=== PATIENT | female | born 1990 | race Caucasian/White ===

== ENCOUNTER 2017-12-14 12:14 | Emergency (ER) | payer MEDICAID ==
[2017-12-14 12:23] VITALS: BP 107/67
--- NOTE | 2017-12-14 12:25 | EDM.PDOC ---
ED HPI GENERAL MEDICAL PROBLEM - General Chief Complaint: ENT Problem Stated Complaint: cold [id number] Time Seen by Provider: 12/14/17 12:25 Source of Information: Reports: Patient, RN, RN Notes Reviewed History Limitations: Reports: No Limitations - History of Present Illness INITIAL COMMENTS - FREE TEXT/NARRATIVE: Pt to ER with c/o generalized body aches and sore throat. She states she is in the middle of a 36 hour stretch at work and feels terrible. She denies fever but admits to chills, admits to nausea, but denies vomiting or diarrhea. Denies headache, cough, sinus congestion or runny nose. She states she has had Strep throat many times and feels this is what it is. Onset: Today, Sudden Duration: Getting Worse Location: Reports: Generalized Quality: Reports: Ache Severity: Moderate Improves with: Reports: None Worsens with: Reports: None Associated Symptoms: Reports: Fever/Chills, Nausea/Vomiting - Related Data Allergies Allergy/AdvReac Type Severity Reaction Status Date / Time Penicillins Allergy Hives Verified 07/17/14 13:08 Home Meds: Home Meds . [No Known Home Meds] 07/28/13 [History] Past Medical History - Past Health History Medical/Surgical History: Denies Medical/Surgical History Social & Family History - Living Situation & Occupation Living situation: Reports: with Significant Other Occupation: Unemployed ED ROS GENERAL - Review of Systems Review Of Systems: ROS reveals no pertinent complaints other than HPI. ED EXAM, GENERAL - Physical Exam Exam: See Below Exam Limited By: No Limitations General Appearance: Alert, WD/WN, No Apparent Distress Eye Exam: Bilateral Eye: EOMI, Normal Inspection Ears: Normal External Exam, Hearing Grossly Normal Nose: Normal Inspection Throat/Mouth: Normal Voice, No Airway Compromise, Other (tonsils +2, erythematous.) Head: Atraumatic, Normocephalic Neck: Normal Inspection, Supple, Non-Tender, Full Range of Motion Respiratory/Chest: No Respiratory Distress, Lungs Clear, Normal Breath Sounds, No Accessory Muscle Use, Chest Non-Tender Cardiovascular: Normal Peripheral Pulses, Regular Rate, Rhythm, No Edema, No Gallop, No JVD, No Murmur, No Rub Peripheral Pulses: 2+: Radial (L), Radial (R) GI/Abdominal: Normal Bowel Sounds, Soft, Non-Tender (Female) Exam: Deferred Rectal (Female) Exam: Deferred Back Exam: Normal Inspection, Full Range of Motion Extremities: Normal Inspection, Normal Range of Motion, Non-Tender, No Pedal Edema, Normal Capillary Refill Neurological: Alert, Oriented, CN II-XII Intact, Normal Cognition, Normal Gait, Normal Reflexes, No Motor/Sensory Deficits Psychiatric: Normal Affect, Normal Mood Skin Exam: Warm, Dry, Intact, Normal Color, No Rash Lymphatic: No Adenopathy Course - Vital Signs Last Recorded V/S: Last Vital Signs Temp 98.7 F 12/14/17 12:22 Pulse 108 H 12/14/17 12:22 Resp 14 12/14/17 12:22 BP 107/67 12/14/17 12:22 Pulse Ox 98 12/14/17 12:22 - Orders/Labs/Meds Orders: Active Orders 24 hr Category Date Time Status STREP SCRN A RAPID W CULT CONF [RM] Stat Lab 12/14/17 12:20 Received Labs: Rapid Strep: Negative Departure - Departure Time of Disposition: 12:46 Disposition: Home, Self-Care 01 Condition: Fair Clinical Impression: Tonsillitis - Discharge Information *PRESCRIPTION DRUG MONITORING PROGRAM REVIEWED*: No *COPY OF PRESCRIPTION DRUG MONITORING REPORT IN PATIENT PAULA: No Instructions: Tonsillitis, [id number] Forms: ED Department Discharge Additional Instructions: Follow up with your primary care facility Drink plenty of fluids May use tylenol and/or ibuprofen as directed for pain - My Orders Last 24 Hours: My Active Orders 12/14/17 12:20 STREP SCRN A RAPID W CULT CONF [RM] Stat - Assessment/Plan Last 24 Hours: My Active Orders 12/14/17 12:20 STREP SCRN A RAPID W CULT CONF [RM] Stat
== END 2017-12-14 12:51 | disposition home or self-care (01) ==
LOC: DL.ED 12:14
DX: J03.90 Acute tonsillitis, unspecified (principal); Z88.0 Allergy status to penicillin
CPT/HCPCS: 87081; 87430; 99283

== ENCOUNTER 2018-11-29 15:55 | Emergency (ER) | payer MEDICAID ==
[2018-11-29 16:57] VITALS: BP 115/77; PULSE 114
--- NOTE | 2018-11-29 19:01 | EDM.PDOC ---
ED HPI GENERAL MEDICAL PROBLEM - General Chief Complaint: ENT Problem Stated Complaint: TONSILS SWOLLEN AND BLEEDING Time Seen by Provider: 11/29/18 18:57 Source of Information: Reports: Patient History Limitations: Reports: No Limitations - History of Present Illness INITIAL COMMENTS - FREE TEXT/NARRATIVE: onset Sx last night. states NOT ALLERGIC to penicillin. last episode got IM + PO. Throat Pain Score (Numeric/FACES): 7 - Related Data Allergies Allergy/AdvReac Type Severity Reaction Status Date / Time Penicillins Allergy Hives Verified 11/29/18 16:56 Home Meds: Home Meds . [No Known Home Meds] 07/28/13 [History] Past Medical History - Past Health History Medical/Surgical History: Denies Medical/Surgical History HEENT History: Reports: None Cardiovascular History: Reports: None Respiratory History: Reports: Asthma Other Respiratory History: exercise induced Gastrointestinal History: Reports: None Genitourinary History: Reports: None [employer] INS[employer] History: Reports: None Musculoskeletal History: Reports: None Neurological History: Reports: None Psychiatric History: Reports: None Endocrine/Metabolic History: Reports: None Hematologic History: Reports: None Immunologic History: Reports: None Oncologic (Cancer) History: Reports: None Dermatologic History: Reports: None - Infectious Disease History Infectious Disease History: Reports: Chicken Pox - Past Surgical History Head Surgeries/Procedures: Reports: None Social & Family History - Tobacco Use Years of Tobacco use: 1 Second Hand Smoke Exposure: No - Caffeine Use Caffeine Use: Reports: Coffee, Soda - Recreational Drug Use Recreational Drug Use: No - Living Situation & Occupation Living situation: Reports: with Significant Other Occupation: Unemployed ED ROS ENT - Review of Systems Review Of Systems: ROS reveals no pertinent complaints other than HPI. ED EXAM, ENT - Physical Exam Exam: See Below Exam Limited By: No Limitations General Appearance: Alert, WD/WN, Mild Distress, Other (discomfort) Ears: Hearing Grossly Normal Mouth/Throat: Pharyngeal Erythema, Tonsillar Erythema, Tonsillar Exudates, Tonsillar Swelling. No: Peritonsillar Mass Head: Atraumatic Neck: Lymphadenopathy (L), Lymphadenopathy (R) Respiratory/Chest: No Respiratory Distress Cardiovascular: Regular Rate, Rhythm GI/Abdominal: Soft, Non-Tender Neurological: Alert, Oriented, Normal Cognition, Normal Gait, No Motor/Sensory Deficits Psychiatric: Normal Affect, Normal Mood Skin: Warm, Dry, Normal Color Lymphatic: No Adenopathy Course - Vital Signs Last Recorded V/S: Last Vital Signs Temp 36.9 C 11/29/18 16:56 Pulse 114 H 11/29/18 16:56 Resp 18 11/29/18 16:56 BP 115/77 11/29/18 16:56 Pulse Ox 96 11/29/18 16:56 - Orders/Labs/Meds Meds: Medications Discontinued Medications Generic Name Dose Route Start Last Admin Trade Name Freq PRN Reason Stop Dose Admin Ceftriaxone Sodium 1 gm/ 0 gm 11/29/18 18:57 11/29/18 19:11 Lidocaine HCl 2.1 ml IM 11/29/18 18:58 2.1 inj ONETIME ONE Administration - Re-Assessments/Exams Free Text/Narrative Re-Assessment/Exam: 11/29/18 18:59 results discussed with pt. Departure - Departure Time of Disposition: 19:31 Disposition: Home, Self-Care 01 Condition: Good Clinical Impression: Streptococcal sore throat - Discharge Information Instructions: Strep Throat, [id number] Referrals: Elliot Tellez MD [Primary Care Provider] - Forms: ED Department Discharge Additional Instructions: 1) avoid solid foods 2) take tylenol or motrin for fever 3) try salt water gargle 4) follow up at clinic for ENT REFERRAL rx given; keflex 250mg qid x 40
[2018-11-29] MEDS: cefTRIAXone 1 GM, Lidocaine 1% 2.1 ML IM ONE ×2 (19:11)
== END 2018-11-29 19:31 | disposition home or self-care (01) ==
LOC: DL.ED 15:55
DX: J02.0 Streptococcal pharyngitis (principal); Z88.0 Allergy status to penicillin
CPT/HCPCS: 87430; 87804; 96372; 99283; J0696; J2001

== ENCOUNTER 2019-04-05 01:12 | Emergency (ER) | payer MEDICAID ==
[2019-04-05 01:26] VITALS: BP 131/73; PULSE 120
--- NOTE | 2019-04-05 02:01 | EDM.PDOC ---
ED HPI GENERAL MEDICAL PROBLEM - General Chief Complaint: General Stated Complaint: FLU Time Seen by Provider: 04/05/19 01:54 Source of Information: Reports: Patient History Limitations: Reports: No Limitations - History of Present Illness INITIAL COMMENTS - FREE TEXT/NARRATIVE: states was exposed to influ B. today suddenly felt sick, no energy, no appetite. Generalized Pain Score (Numeric/FACES): 6 - Related Data Allergies Allergy/AdvReac Type Severity Reaction Status Date / Time Penicillins Allergy Hives Verified 04/05/19 01:19 Home Meds: Home Meds . [No Known Home Meds] 07/28/13 [History] Past Medical History - Past Health History Medical/Surgical History: Denies Medical/Surgical History HEENT History: Reports: None Cardiovascular History: Reports: None Respiratory History: Reports: Asthma Other Respiratory History: exercise induced Gastrointestinal History: Reports: None Genitourinary History: Reports: None [employer] History: Reports: None Musculoskeletal History: Reports: None Neurological History: Reports: None Psychiatric History: Reports: None Endocrine/Metabolic History: Reports: None Hematologic History: Reports: None Immunologic History: Reports: None Oncologic (Cancer) History: Reports: None Dermatologic History: Reports: None - Infectious Disease History Infectious Disease History: Reports: Chicken Pox - Past Surgical History Head Surgeries/Procedures: Reports: None Social & Family History - Family History Family Medical History: Noncontributory - Tobacco Use Smoking Status *Q: Never Smoker Second Hand Smoke Exposure: No - Caffeine Use Caffeine Use: Reports: Coffee - Recreational Drug Use Recreational Drug Use: No - Living Situation & Occupation Living situation: Reports: with Significant Other Occupation: Unemployed ED ROS GENERAL - Review of Systems Review Of Systems: Comprehensive ROS is negative, except as noted in HPI. ED EXAM, GENERAL - Physical Exam Exam: See Below Exam Limited By: No Limitations General Appearance: Alert, WD/WN, Mild Distress, Other (discomfort) Ears: Hearing Grossly Normal Throat/Mouth: Normal Voice, No Airway Compromise Head: Atraumatic Neck: Non-Tender, Full Range of Motion Respiratory/Chest: No Respiratory Distress Cardiovascular: Regular Rate, Rhythm GI/Abdominal: Soft, Non-Tender Neurological: Alert, Oriented, Normal Cognition, Normal Gait, No Motor/Sensory Deficits Psychiatric: Flat Affect Skin Exam: Warm, Dry, Normal Color Lymphatic: No Adenopathy Course - Vital Signs Last Recorded V/S: Last Vital Signs Temp 37.4 C 04/05/19 01:20 Pulse 120 H 04/05/19 01:20 Resp 16 04/05/19 01:20 BP 131/73 04/05/19 01:20 Pulse Ox 97 04/05/19 01:20 - Orders/Labs/Meds Orders: Active Orders 24 hr Category Date Time Status CULTURE STREP A CONFIRMATION [RM] Stat Lab 04/05/19 01:15 Results STREP SCRN A RAPID W CULT CONF [RM] Stat Lab 04/05/19 01:15 Results - Re-Assessments/Exams Free Text/Narrative Re-Assessment/Exam: 04/05/19 02:09 results discussed with pt Departure - Departure Time of Disposition: 02:10 Disposition: Home, Self-Care 01 Condition: Good Clinical Impression: Flu syndrome - Discharge Information Instructions: Viral Respiratory Infection, [id number] Forms: ED Department Discharge Additional Instructions: 1) sleep as much as possible 2) drink lots of liquids 3) take tylenol or motrin for fever and body aches Sepsis Event Note - Evaluation Sepsis Screening Result: No Definite Risk - Focused Exam Vital Signs: Vital Signs Temp Pulse Resp BP Pulse Ox 04/05/19 01:20 37.4 C 120 H 16 131/73 97 Date Exam was Performed: 04/05/19 Time Exam was Performed: 02:09 - My Orders Last 24 Hours: My Active Orders 04/05/19 01:15 CULTURE STREP A CONFIRMATION [RM] Stat STREP SCRN A RAPID W CULT CONF [RM] Stat - Assessment/Plan Last 24 Hours: My Active Orders 04/05/19 01:15 CULTURE STREP A CONFIRMATION [RM] Stat STREP SCRN A RAPID W CULT CONF [RM] Stat
== END 2019-04-05 02:13 | disposition home or self-care (01) ==
LOC: DL.ED 01:12
DX: J11.1 Influenza due to unidentified influenza virus with other respiratory manifestations (principal); Z88.0 Allergy status to penicillin
CPT/HCPCS: 87081; 87430; 87804; 99283

== ENCOUNTER 2020-05-18 09:21 | Emergency (ER) | payer MEDICAID ==
[2020-05-18 09:44] VITALS: BP 112/71; PULSE 139
== END 2020-05-18 10:10 | disposition left against medical advice (07) ==
LOC: DL.ED 09:21
DX: Z53.21 Procedure and treatment not carried out due to patient leaving prior to being seen by health care provider (principal)

== ENCOUNTER 2022-07-03 12:54 | Emergency (ER) | payer MEDICAID ==
[2022-07-03 13:08] VITALS: BP 112/63; PULSE 115
== END 2022-07-03 13:36 | disposition left against medical advice (07) ==
LOC: DL.ED 12:54
DX: Z53.21 Procedure and treatment not carried out due to patient leaving prior to being seen by health care provider (principal)

== ENCOUNTER 2022-08-16 18:48 | Inpatient (IN) | payer MEDICAID ==
[2022-08-16] MEDS ORDERED: Misoprostol 400 MCG (4 X 100 MCG TAB) RECTAL PRN (20:24)
[2022-08-16] MEDS ORDERED: Carboprost Tromethamine 250 MCG/1 ML Amp IM PRN (20:24)
[2022-08-16] MEDS ORDERED: Methylergonovine 0.2 MG/1 ML Amp IM PRN (20:24)
[2022-08-16] MEDS ORDERED: Sodium Chloride 0.9% 10 ML Syringe FLUSH PRN ×2 (20:24→22:31)
[2022-08-16] MEDS ORDERED: Lactated Ringers 1,000 ML IV ONE (20:24)
[2022-08-16] MEDS ORDERED: Ondansetron 4 MG/2 ML SDV IVPUSH PRN (20:24)
[2022-08-16] MEDS ORDERED: Tranexamic Acid 1,000 MG in Sodium Chloride 0.9% 100 ML IV PRN (20:24)
[2022-08-16] MEDS ORDERED: Lidocaine 1% 30 ML SDV INJECT PRN (20:24)
[2022-08-16] MEDS ORDERED: Oxytocin/Normal Saline 30 UNIT/500 ML BAG IV SCH (20:30)
[2022-08-16] MEDS ORDERED: Lactated Ringers 1,000 ML IV SCH (20:30)
[2022-08-16 20:58] LABS: HEMATOCRIT 35.1 % (37.0-47.0); HEMOGLOBIN 11.7 g/dL (12.0-16.0); MEAN CORPUSCULAR HEMOGLOBIN 28.4 pg (27.0-34.0); MEAN CORPUSCULAR HGB CONC 33.3 g/dL (33.0-35.0); MEAN CORPUSCULAR VOLUME 85.2 fL (80-100); RED BLOOD CELL COUNT 4.12 10^6/uL (4.2-5.4)
[2022-08-16] MEDS ORDERED: fentaNYL 100 MCG/2 ML SDV ONE (21:05)
[2022-08-16] MEDS ORDERED: Bupivacaine 0.25% 10 ML SDV ONE (21:06)
[2022-08-16 21:19] LABS: CREATININE 0.85 mg/dL (0.55-1.02); EST CRCL DRUG DOSING (CG) 90.6 mL/min; URIC ACID 4.6 mg/dL (2.6-6.0)
[2022-08-16] MEDS ORDERED: Phenylephrine HCl In 0.9% NaCl 1 MG/10 ML Syringe IVPUSH PRN (21:30)
[2022-08-16] MEDS ORDERED: Ropivacaine 200 MG in Premix Bag 1 BAG EPIDUR SCH (21:30)
[2022-08-16] MEDS ORDERED: ePHEDrine 50 MG/ML SDV IVPUSH PRN (21:30)
[2022-08-16] MEDS ORDERED: Oxytocin 10 Units/1 ML SDV IM PRN (22:31)
[2022-08-16] MEDS ORDERED: Simethicone 80 MG Tab.Chew PO PRN (22:31)
[2022-08-16] MEDS ORDERED: Benzocaine/Menthol 20%-0.5% Spray 78 GM Cannister TOP PRN (22:31)
[2022-08-16] MEDS ORDERED: Zolpidem 5 MG Tab PO PRN (22:31)
[2022-08-16] MEDS: Ibuprofen 800 MG Tab PO PRN (23:59)
[2022-08-17 02:52] LABS: APPEARANCE,URINE SLIGHTLY CLOUDY (CLEAR); BILIRUBIN,URINE NEGATIVE (NEGATIVE); GLUCOSE,URINE NEGATIVE (NEGATIVE); KETONES,URINE TRACE (NEGATIVE); LEUKOCYTE ESTERASE,URINE SMALL (NEGATIVE); NITRITE,URINE NEGATIVE (NEGATIVE); OCCULT BLOOD,URINE LARGE (NEGATIVE); PROTEIN,URINE TRACE (NEGATIVE); UROBILINOGEN,URINE 0.2 mg/dL (0.2-1.0)
[2022-08-17 02:54] LABS: COLOR,URINE AMBER (YELLOW)
[2022-08-17 03:04] LABS: CREATININE,URINE RAND 66.68 mg/dL (No establ ref range); PROTEIN CREATININE RATIO,URINE 244.5 mg/g (<150.0); PROTEIN,URINE RANDOM 16.3 mg/dL (0.0-11.9)
[2022-08-17] MEDS ORDERED: Witch Hazel Medicated Pads 100/Jar TOP PRN (04:29)
[2022-08-17] MEDS: Acetaminophen 325 MG Tab PO PRN ×4 (04:43→21:11)
[2022-08-17] MEDS ORDERED: Mineral Oil/Petrolatum/Phenylephrine/Shark Liver Oil Oint 57 GM Tube RECTAL PRN (05:08)
[2022-08-17 06:16] LABS: HEMOGLOBIN 11.3 g/dL (12.0-16.0); MEAN CORPUSCULAR HEMOGLOBIN 28.3 pg (27.0-34.0); MEAN CORPUSCULAR HGB CONC 33.2 g/dL (33.0-35.0); MEAN CORPUSCULAR VOLUME 85.2 fL (80-100); RED BLOOD CELL COUNT 3.99 10^6/uL (4.2-5.4); WHITE BLOOD CELL COUNT,WBC 20.1 10^3/uL (5.0-10.0)
[2022-08-17] MEDS: Ibuprofen 800 MG Tab PO PRN ×2 (08:18→16:36)
[2022-08-17] MEDS: Prenatal Multivitamin with Calcium/Folic Acid/Iron Tab PO SCH (08:19)
[2022-08-17] MEDS: Docusate Sodium 100 MG Cap PO PRN ×2 (08:19→21:11)
[2022-08-18] MEDS: Ibuprofen 800 MG Tab PO PRN ×2 (00:38→08:45)
[2022-08-18] MEDS: Acetaminophen 325 MG Tab PO PRN ×2 (04:06→08:44)
[2022-08-18] MEDS: Prenatal Multivitamin with Calcium/Folic Acid/Iron Tab PO SCH (08:45)
[2022-08-18] MEDS: Docusate Sodium 100 MG Cap PO PRN (08:45)
[2022-08-18 12:54] VITALS: BP 128/73; PULSE 94
== END 2022-08-18 12:15 | disposition home or self-care (01) | DRG 807 ==
LOC: DL.OBCHECK 18:48 → DL.OB 20:24 → UNDOADMOB 20:32 → OBSVTOIN 22:41 → DL.OB 22:41
PROVIDERS: ADMIT Family Medicine; ATTEND Family Medicine
PROC: 10E0XZZ Delivery of Products of Conception, External Approach (ICD-10-PCS; principal; 2022-08-16)
PROC: 10907ZC Drainage of Amniotic Fluid, Therapeutic from Products of Conception, Via Natural or Artificial Opening (ICD-10-PCS; 2022-08-16)
DX: O34.03 Maternal care for unspecified congenital malformation of uterus, third trimester (principal); O99.52 Diseases of the respiratory system complicating childbirth; J45.909 Unspecified asthma, uncomplicated; O13.4 Gestational [pregnancy-induced] hypertension without significant proteinuria, complicating childbirth; Z37.0 Single live birth; Q51.3 Bicornate uterus; Z88.8 Allergy status to other drugs, medicaments and biological substances; Z3A.38 38 weeks gestation of pregnancy
CPT/HCPCS: 36415; 51702; 59409; 81003; 82565; 82570; 83615; 84156; 84450; 84460; 84520; 84550; 85027; A9270-GY; J2405; J2590; J2795; J7120